=== PATIENT | female | born 1995 | race African-American/Black ===

== ENCOUNTER 2018-03-12 19:10 | Emergency (ER) | payer SELFPAY ==
[~2018-03-12] VITALS: Ht 170.2 cm; Wt 100.0 kg
[2018-03-12] MEDS ORDERED: naproxen 500mg tablet PO ONE (21:45)
[2018-03-12] MEDS ORDERED: NAPR-56 PO (21:45)
[2018-03-12] MEDS ORDERED: HYDROcodone/acetaminophen 10/325mg tab PO ONE (21:45)
[2018-03-12] MEDS ORDERED: CYCL-1 PO (21:45)
[2018-03-12] MEDS ORDERED: cyclobenzaprine 10mg tablet PO ONE (21:45)
[2018-03-12 22:39] VITALS: BP 134/74
== END 2018-03-12 22:40 | disposition home or self-care (01) ==
LOC: ER 19:11
DX: S80.01XA Contusion of right knee, initial encounter (principal); M62.838 Other muscle spasm; M25.521 Pain in right elbow; M25.511 Pain in right shoulder; F17.200 Nicotine dependence, unspecified, uncomplicated; Z56.0 Unemployment, unspecified; Z79.899 Other long term (current) drug therapy; V89.2XXA Person injured in unspecified motor-vehicle accident, traffic, initial encounter; Y93.89 Activity, other specified; Y92.89 Other specified places as the place of occurrence of the external cause; Y99.8 Other external cause status
CPT/HCPCS: 73030; 73080; 99284